=== PATIENT | male | born 1990 | race Caucasian/White ===

== ENCOUNTER 2019-01-17 19:54 | Emergency (ER) | payer SELFPAY ==
[~2019-01-17] VITALS: Ht 167.6 cm; Wt 90.7 kg
[2019-01-17 19:54] VITALS: BP 97/76
--- NOTE | 2019-01-17 19:54 | NUR ---
28/M [facility] ([facility] #[id number]) FOR PREBOOK CLEARANCE. PT C/O R LATERAL HAND PAIN WITH SWELLING AND MILD BRUISING, S/P HITTING HAND ON A HARD SURFACE 1 HR AGO, +CMS, TENDER TO TOUCH. PT AWAKE AND ALERT, SKIN NORMAL COLOR WARM AND DRY, RR EVEN AND UNLABORED. DENIES MED HX OR RX.
[2019-01-17 21:36] VITALS: BP 120/75
--- NOTE | 2019-01-17 21:37 | NUR ---
Patient discharged with v/s stable. Written and verbal after care instructions given and explained. Patient verbalized understanding. Ambulatory with [facility] #[id number] in custody. All questions addressed prior to discharge. Advised to follow up with PMD.
== END 2019-01-17 21:36 ==
LOC: MED 19:54
DX: S60.221A Contusion of right hand, initial encounter (principal); V49.88XA Car occupant (driver) (passenger) injured in other specified transport accidents, initial encounter; Y93.89 Activity, other specified; Y92.89 Other specified places as the place of occurrence of the external cause; Y99.8 Other external cause status
CPT/HCPCS: 73130; 99283

== ENCOUNTER 2023-09-04 08:46 | Emergency (ER) | payer OTHER ==
[~2023-09-04] VITALS: Ht 170.2 cm; Wt 95.7 kg
[2023-09-04 09:01] VITALS: BP 129/73; PULSE 97; RESP 18; TEMP 97.3; O2SAT 99
[2023-09-04 10:15] VITALS: BP 122/66; PULSE 94; RESP 16; TEMP 97.5; O2SAT 98
== END 2023-09-04 10:14 | disposition home or self-care (01) ==
LOC: MED 08:46
DX: R07.89 Other chest pain (principal); K29.70 Gastritis, unspecified, without bleeding
CPT/HCPCS: 71045; 93005; 99283